=== PATIENT | female | born 1945 | race Hispanic/Latino ===

== ENCOUNTER 2022-01-28 16:18 | Emergency (ER) | payer MEDICARE ==
[~2022-01-28] VITALS: Ht 154.9 cm; Wt 68.0 kg
== END 2022-01-28 17:10 | disposition home or self-care (01) ==
LOC: ER 16:45
DX: Z46.6 Encounter for fitting and adjustment of urinary device (principal); I10 Essential (primary) hypertension; E11.9 Type 2 diabetes mellitus without complications; K76.9 Liver disease, unspecified
CPT/HCPCS: 99282